=== PATIENT | female | born 1930 | race Caucasian/White ===

== ENCOUNTER 2017-03-26 12:20 | Inpatient (IN) | payer OTHER ==
[2017-03-26 17:14] LABS: ADD MAN DIFF? NO
[2017-03-26 17:22] LABS: BASOPHILS % 0.2 % (0.0-2.0); EOSINOPHILS % 0.4 % (0.0-7.0); HEMATOCRIT 39.7 % (37.0-47.0); HEMOGLOBIN 13.2 g/dl (12.0-16.0); LYMPHOCYTES # 2.6 10^3/ul (0.8-2.9); LYMPHOCYTES % 24.5 % (15.0-51.0); MEAN CORPUSCULAR HEMOGLOBIN 30.1 pg (29.0-33.0); MEAN CORPUSCULAR HGB CONC 33.2 g/dl (32.0-37.0); MEAN CORPUSCULAR VOLUME 90.6 fl (82.0-101.0); MEAN PLATELET VOLUME 8.5 fl (7.4-10.4); MONOCYTE # 0.9 10^3/ul (0.3-0.9); MONOCYTES % 8.5 % (0.0-11.0); NEUTROPHIL # 6.9 10^3/ul (1.6-7.5); NEUTROPHILS % 66.1 % (39.0-77.0); PLATELET COUNT 340 10^3/UL (140-415); RED BLOOD COUNT 4.38 10^6/ul (4.20-5.40); RED CELL DISTRIBUTION WIDTH 14.7 % (11.5-14.5)
[2017-03-26 17:22] LABS: WHITE BLOOD COUNT 10.5 10^3/ul (4.8-10.8)
[2017-03-26 17:42] LABS: INR 0.98; PARTIAL THROMBOPLASTIN TIME 28.5 Sec (25.0-35.0); PROTIME 13.1 Sec (11.9-14.9)
[2017-03-26 17:46] LABS: ANION GAP 13 (8-16); BLOOD UREA NITROGEN 15 mg/dl (7-20); CALCIUM 9.3 mg/dl (8.4-10.2); CARBON DIOXIDE 30 mmol/L (21-31); CHLORIDE 101 mmol/L (97-110); CREATININE 0.59 mg/dl (0.44-1.00); GLUCOSE 101 mg/dl (70-220); POTASSIUM 3.7 mmol/L (3.5-5.1); SODIUM 140 mmol/L (135-144)
[2017-03-26 18:08] LABS: TROPONIN-I < 0.012 ng/ml (0.00-0.12)
[2017-03-26] MEDS: METOPROLOL 50 MG TAB PO (18:29)
[2017-03-26] MEDS: AMLODIPINE 10 MG TAB PO (18:29)
[2017-03-26] MEDS: LISINOPRIL 10 MG TAB PO (18:29)
[2017-03-26] MEDS: IODIXANOL LOCM 100 ML BTL (20:00)
[2017-03-26] MEDS: SOD CHLORIDE 0.9% 100 ML (20:00)
[2017-03-26] MEDS: niCARdipine-NS 0.1MG/ML DRIP 200 ML IV (20:07)
[2017-03-26] MEDS: NACL 3% 500 ML IV (23:48)
[2017-03-27] LABS: CREATINE KINASE 29 IU/L (23-200)
[2017-03-27] MEDS ORDERED: ACETAMINOPHEN 650MG/20.3ML CUP PO
[2017-03-27] MEDS ORDERED: HYDROCODONE/APAP (5/325) TAB PO
[2017-03-27] MEDS ORDERED: ONDANSETRON 4 MG INJ IV
[2017-03-27 00:12] LABS: CK INDEX 4.7; CK-MB 1.36 ng/ml (0.0-2.4)
[2017-03-27 00:37] LABS: TROPONIN-I < 0.012 ng/ml (0.00-0.12)
[2017-03-27 00:42] LABS: ANION GAP 9 (8-16); BLOOD UREA NITROGEN 12 mg/dl (7-20); CALCIUM 8.9 mg/dl (8.4-10.2); CARBON DIOXIDE 30 mmol/L (21-31); CHLORIDE 101 mmol/L (97-110); CREATININE 0.52 mg/dl (0.44-1.00); GLUCOSE 110 mg/dl (70-220); POTASSIUM 3.4 mmol/L (3.5-5.1); SODIUM 137 mmol/L (135-144)
[2017-03-27] MEDS: NACL 3% 500 ML IV ×5 (01:08→20:35)
[2017-03-27] MEDS: niCARdipine 25 MG in SOD CHLORIDE 0.9% 240 ML IV ×3 (01:59→17:28)
[2017-03-27 05:25] LABS: ADD MAN DIFF? NO
[2017-03-27 05:33] LABS: BASOPHILS % 0.3 % (0.0-2.0); EOSINOPHILS # 0.1 10^3/ul (0.0-0.5); EOSINOPHILS % 0.7 % (0.0-7.0); LYMPHOCYTES # 2.6 10^3/ul (0.8-2.9); LYMPHOCYTES % 25.2 % (15.0-51.0); MEAN CORPUSCULAR HGB CONC 33.3 g/dl (32.0-37.0); MEAN PLATELET VOLUME 8.5 fl (7.4-10.4); MONOCYTE # 0.8 10^3/ul (0.3-0.9); MONOCYTES % 7.9 % (0.0-11.0); NEUTROPHIL # 6.8 10^3/ul (1.6-7.5); NEUTROPHILS % 65.6 % (39.0-77.0); PLATELET COUNT 309 10^3/UL (140-415); RED CELL DISTRIBUTION WIDTH 14.9 % (11.5-14.5)
[2017-03-27 05:33] LABS: WHITE BLOOD COUNT 10.4 10^3/ul (4.8-10.8)
[2017-03-27 06:03] LABS: CREATINE KINASE 24 IU/L (23-200)
[2017-03-27] MEDS: PANTOPRAZOLE 40 MG INJ IV (06:04)
[2017-03-27 06:06] LABS: ALANINE AMINOTRANSFERASE 31 IU/L (13-69); ALBUMIN 3.5 g/dl (3.3-4.9); ALBUMIN/GLOBULIN RATIO 1.09; ALKALINE PHOSPHATASE 102 IU/L (42-121); ANION GAP 10 (8-16); ASPARTATE AMINO TRANSFERASE 20 IU/L (15-46); BILIRUBIN,INDIRECT 0.3 mg/dl (0-1.1); BILIRUBIN,TOTAL 0.3 mg/dl (0.2-1.3); BLOOD UREA NITROGEN 12 mg/dl (7-20); CALCIUM 8.8 mg/dl (8.4-10.2); CARBON DIOXIDE 28 mmol/L (21-31); CHLORIDE 109 mmol/L (97-110); CREATININE 0.55 mg/dl (0.44-1.00); GLUCOSE 102 mg/dl (70-220); POTASSIUM 3.3 mmol/L (3.5-5.1); SODIUM 144 mmol/L (135-144); TOTAL PROTEIN 6.7 g/dl (6.1-8.1)
[2017-03-27 06:09] LABS: CK INDEX 4.1; CK-MB 0.98 ng/ml (0.0-2.4)
[2017-03-27 06:30] LABS: TROPONIN-I < 0.012 ng/ml (0.00-0.12)
[2017-03-27] MEDS: POTASSIUM CHLORIDE (SR) 20 MEQ TAB PO (06:46)
[2017-03-27 07:18] LABS: HEMOGLOBIN A1C 5.3 % (0-5.9)
[2017-03-27] MEDS: DOCUSATE SODIUM 100 MG CAP PO ×2 (09:40→20:33)
[2017-03-27] MEDS: MOMETASONE 0.24 GM INHALER INH (12:13)
[2017-03-27] MEDS: SALMETEROL/FLUTICASONE 250/50 INHA INH (12:13)
[2017-03-27 13:19] LABS: ANION GAP 11 (8-16); BLOOD UREA NITROGEN 11 mg/dl (7-20); CALCIUM 8.8 mg/dl (8.4-10.2); CARBON DIOXIDE 27 mmol/L (21-31); CHLORIDE 108 mmol/L (97-110); CREATININE 0.53 mg/dl (0.44-1.00); GLUCOSE 127 mg/dl (70-220); POTASSIUM 3.9 mmol/L (3.5-5.1); SODIUM 142 mmol/L (135-144)
[2017-03-27] MEDS: LISINOPRIL 10 MG TAB PO (15:32)
[2017-03-27] MEDS: SERTRALINE 100 MG TAB PO (15:32)
[2017-03-27] MEDS: PANTOPRAZOLE (EC) 40 MG TAB PO (15:32)
[2017-03-27] MEDS: METOPROLOL 50 MG TAB PO ×2 (15:32→20:34)
[2017-03-27] MEDS: THIAMINE 100 MG TAB PO (15:32)
[2017-03-27] MEDS: AMLODIPINE 10 MG TAB PO (15:33)
[2017-03-27] MEDS: LORATADINE 10 MG TAB PO (17:28)
[2017-03-27] MEDS: ATORVASTATIN 10 MG TAB PO (20:33)
[2017-03-28] MEDS: NACL 3% 500 ML IV ×2 (01:44→22:58)
[2017-03-28] MEDS: niCARdipine 25 MG in SOD CHLORIDE 0.9% 240 ML IV ×4 (02:00→22:37)
[2017-03-28 04:17] LABS: ADD MAN DIFF? NO
[2017-03-28] MEDS: SALMETEROL/FLUTICASONE 250/50 INHA INH ×3 (04:21→21:06)
[2017-03-28 04:23] LABS: BASOPHILS % 0.4 % (0.0-2.0); EOSINOPHILS # 0.1 10^3/ul (0.0-0.5); EOSINOPHILS % 0.7 % (0.0-7.0); HEMATOCRIT 34.4 % (37.0-47.0); HEMOGLOBIN 11.1 g/dl (12.0-16.0); LYMPHOCYTES # 1.9 10^3/ul (0.8-2.9); MEAN CORPUSCULAR HEMOGLOBIN 29.9 pg (29.0-33.0); MEAN CORPUSCULAR HGB CONC 32.3 g/dl (32.0-37.0); MEAN CORPUSCULAR VOLUME 92.7 fl (82.0-101.0); MEAN PLATELET VOLUME 8.7 fl (7.4-10.4); MONOCYTE # 0.6 10^3/ul (0.3-0.9); MONOCYTES % 7.4 % (0.0-11.0); NEUTROPHIL # 5.6 10^3/ul (1.6-7.5); NEUTROPHILS % 68.1 % (39.0-77.0); PLATELET COUNT 306 10^3/UL (140-415); RED BLOOD COUNT 3.71 10^6/ul (4.20-5.40); RED CELL DISTRIBUTION WIDTH 15.3 % (11.5-14.5)
[2017-03-28 04:23] LABS: WHITE BLOOD COUNT 8.2 10^3/ul (4.8-10.8)
[2017-03-28 04:57] LABS: ALANINE AMINOTRANSFERASE 25 IU/L (13-69); ALBUMIN 3.5 g/dl (3.3-4.9); ALBUMIN/GLOBULIN RATIO 1.16; ALKALINE PHOSPHATASE 89 IU/L (42-121); ANION GAP 14 (8-16); ASPARTATE AMINO TRANSFERASE 19 IU/L (15-46); BILIRUBIN,INDIRECT 0.2 mg/dl (0-1.1); BILIRUBIN,TOTAL 0.2 mg/dl (0.2-1.3); BLOOD UREA NITROGEN 11 mg/dl (7-20); CALCIUM 8.4 mg/dl (8.4-10.2); CARBON DIOXIDE 25 mmol/L (21-31); CHLORIDE 119 mmol/L (97-110); CREATININE 0.49 mg/dl (0.44-1.00); GLUCOSE 117 mg/dl (70-220); POTASSIUM 3.5 mmol/L (3.5-5.1); SODIUM 154 mmol/L (135-144); TOTAL PROTEIN 6.5 g/dl (6.1-8.1)
[2017-03-28] MEDS: PANTOPRAZOLE (EC) 40 MG TAB PO (05:32)
[2017-03-28] MEDS: THIAMINE 100 MG TAB PO (08:57)
[2017-03-28] MEDS: DOCUSATE SODIUM 100 MG CAP PO ×2 (08:57→21:07)
[2017-03-28] MEDS: AMLODIPINE 10 MG TAB PO (08:57)
[2017-03-28] MEDS: LORATADINE 10 MG TAB PO (08:57)
[2017-03-28] MEDS: SERTRALINE 100 MG TAB PO (08:57)
[2017-03-28] MEDS: METOPROLOL 50 MG TAB PO ×2 (08:58→21:07)
[2017-03-28] MEDS ORDERED: LISINOPRIL 10 MG TAB PO (09:00)
[2017-03-28] MEDS: LISINOPRIL 10 MG TAB PO (10:10)
[2017-03-28] MEDS: D5W-0.45 NACL + KCL 20 MEQ 1,000 ML IV (10:10)
[2017-03-28] MEDS: MOMETASONE 0.24 GM INHALER INH (13:56)
[2017-03-28 15:53] LABS: ANION GAP 12 (8-16); BLOOD UREA NITROGEN 13 mg/dl (7-20); CALCIUM 8.3 mg/dl (8.4-10.2); CARBON DIOXIDE 25 mmol/L (21-31); CHLORIDE 112 mmol/L (97-110); CREATININE 0.57 mg/dl (0.44-1.00); GLUCOSE 94 mg/dl (70-220); POTASSIUM 3.8 mmol/L (3.5-5.1); SODIUM 145 mmol/L (135-144)
[2017-03-28] MEDS: D5-NS + KCL 20 MEQ 1,000 ML IV (17:21)
[2017-03-28] MEDS: ATORVASTATIN 10 MG TAB PO (21:06)
[2017-03-28 22:18] LABS: ANION GAP 10 (8-16); BLOOD UREA NITROGEN 16 mg/dl (7-20); CALCIUM 8.5 mg/dl (8.4-10.2); CARBON DIOXIDE 25 mmol/L (21-31); CHLORIDE 108 mmol/L (97-110); CREATININE 0.57 mg/dl (0.44-1.00); GLUCOSE 101 mg/dl (70-220); POTASSIUM 3.5 mmol/L (3.5-5.1); SODIUM 139 mmol/L (135-144)
[2017-03-29 00:55] LABS: ANION GAP 11 (8-16); BLOOD UREA NITROGEN 15 mg/dl (7-20); CALCIUM 8.3 mg/dl (8.4-10.2); CARBON DIOXIDE 23 mmol/L (21-31); CHLORIDE 110 mmol/L (97-110); CREATININE 0.51 mg/dl (0.44-1.00); GLUCOSE 88 mg/dl (70-220); POTASSIUM 3.3 mmol/L (3.5-5.1); SODIUM 141 mmol/L (135-144)
[2017-03-29] MEDS: D5-NS + KCL 20 MEQ 1,000 ML IV (05:44)
[2017-03-29 06:18] LABS: ADD MAN DIFF? NO
[2017-03-29 06:31] LABS: BASOPHILS % 0.4 % (0.0-2.0); EOSINOPHILS # 0.2 10^3/ul (0.0-0.5); EOSINOPHILS % 1.9 % (0.0-7.0); HEMATOCRIT 33.1 % (37.0-47.0); HEMOGLOBIN 10.5 g/dl (12.0-16.0); LYMPHOCYTES # 1.9 10^3/ul (0.8-2.9); LYMPHOCYTES % 19.7 % (15.0-51.0); MEAN CORPUSCULAR HEMOGLOBIN 29.3 pg (29.0-33.0); MEAN CORPUSCULAR HGB CONC 31.7 g/dl (32.0-37.0); MEAN CORPUSCULAR VOLUME 92.5 fl (82.0-101.0); MEAN PLATELET VOLUME 8.6 fl (7.4-10.4); MONOCYTE # 0.7 10^3/ul (0.3-0.9); MONOCYTES % 7.8 % (0.0-11.0); NEUTROPHIL # 6.6 10^3/ul (1.6-7.5); NEUTROPHILS % 69.8 % (39.0-77.0); PLATELET COUNT 271 10^3/UL (140-415); RED BLOOD COUNT 3.58 10^6/ul (4.20-5.40)
[2017-03-29 06:31] LABS: WHITE BLOOD COUNT 9.5 10^3/ul (4.8-10.8)
[2017-03-29] MEDS: PANTOPRAZOLE (EC) 40 MG TAB PO (06:47)
[2017-03-29] MEDS: NACL 3% 500 ML IV ×4 (06:57→21:08)
[2017-03-29 07:03] LABS: ALANINE AMINOTRANSFERASE 24 IU/L (13-69); ALBUMIN 3.2 g/dl (3.3-4.9); ALBUMIN/GLOBULIN RATIO 1.06; ALKALINE PHOSPHATASE 82 IU/L (42-121); ANION GAP 11 (8-16); ASPARTATE AMINO TRANSFERASE 20 IU/L (15-46); BILIRUBIN,INDIRECT 0.4 mg/dl (0-1.1); BILIRUBIN,TOTAL 0.4 mg/dl (0.2-1.3); BLOOD UREA NITROGEN 13 mg/dl (7-20); CALCIUM 8.4 mg/dl (8.4-10.2); CARBON DIOXIDE 25 mmol/L (21-31); CHLORIDE 113 mmol/L (97-110); CREATININE 0.48 mg/dl (0.44-1.00); GLUCOSE 87 mg/dl (70-220); POTASSIUM 3.3 mmol/L (3.5-5.1); SODIUM 146 mmol/L (135-144); TOTAL PROTEIN 6.2 g/dl (6.1-8.1)
[2017-03-29] MEDS: SALMETEROL/FLUTICASONE 250/50 INHA INH ×2 (08:58→21:05)
[2017-03-29] MEDS: MOMETASONE 0.24 GM INHALER INH (08:58)
[2017-03-29] MEDS: DOCUSATE SODIUM 100 MG CAP PO ×2 (08:59→21:06)
[2017-03-29] MEDS: SERTRALINE 100 MG TAB PO (08:59)
[2017-03-29] MEDS: LISINOPRIL 10 MG TAB PO (08:59)
[2017-03-29] MEDS: AMLODIPINE 10 MG TAB PO (09:00)
[2017-03-29] MEDS: LORATADINE 10 MG TAB PO (09:00)
[2017-03-29] MEDS ORDERED: LISINOPRIL 10 MG TAB PO (09:00)
[2017-03-29] MEDS: THIAMINE 100 MG TAB PO (09:00)
[2017-03-29] MEDS: METOPROLOL 50 MG TAB PO ×2 (09:01→21:06)
[2017-03-29] MEDS: niCARdipine 25 MG in SOD CHLORIDE 0.9% 240 ML IV ×3 (09:02→21:08)
[2017-03-29 12:46] LABS: ANION GAP 11 (8-16); BLOOD UREA NITROGEN 11 mg/dl (7-20); CALCIUM 8.5 mg/dl (8.4-10.2); CARBON DIOXIDE 25 mmol/L (21-31); CHLORIDE 114 mmol/L (97-110); CREATININE 0.44 mg/dl (0.44-1.00); GLUCOSE 90 mg/dl (70-220); POTASSIUM 3.3 mmol/L (3.5-5.1); SODIUM 147 mmol/L (135-144)
[2017-03-29 19:18] LABS: ANION GAP 12 (8-16); BLOOD UREA NITROGEN 12 mg/dl (7-20); CALCIUM 8.5 mg/dl (8.4-10.2); CARBON DIOXIDE 24 mmol/L (21-31); CHLORIDE 114 mmol/L (97-110); CREATININE 0.52 mg/dl (0.44-1.00); GLUCOSE 120 mg/dl (70-220); POTASSIUM 3.4 mmol/L (3.5-5.1); SODIUM 147 mmol/L (135-144)
[2017-03-29] MEDS: ATORVASTATIN 10 MG TAB PO (21:06)
[2017-03-30] MEDS: niCARdipine 25 MG in SOD CHLORIDE 0.9% 240 ML IV ×3 (00:42→11:15)
[2017-03-30 01:41] LABS: ANION GAP 11 (8-16); BLOOD UREA NITROGEN 12 mg/dl (7-20); CALCIUM 8.4 mg/dl (8.4-10.2); CARBON DIOXIDE 25 mmol/L (21-31); CHLORIDE 117 mmol/L (97-110); CREATININE 0.49 mg/dl (0.44-1.00); GLUCOSE 105 mg/dl (70-220); POTASSIUM 3.1 mmol/L (3.5-5.1); SODIUM 150 mmol/L (135-144)
[2017-03-30] MEDS: NACL 3% 500 ML IV (05:46)
[2017-03-30] MEDS: PANTOPRAZOLE (EC) 40 MG TAB PO (05:46)
[2017-03-30 06:13] LABS: ADD MAN DIFF? NO
[2017-03-30 06:21] LABS: BASOPHILS % 0.3 % (0.0-2.0); EOSINOPHILS # 0.1 10^3/ul (0.0-0.5); EOSINOPHILS % 0.6 % (0.0-7.0); HEMATOCRIT 32.6 % (37.0-47.0); HEMOGLOBIN 10.6 g/dl (12.0-16.0); LYMPHOCYTES # 1.5 10^3/ul (0.8-2.9); MEAN CORPUSCULAR HEMOGLOBIN 30.2 pg (29.0-33.0); MEAN CORPUSCULAR HGB CONC 32.5 g/dl (32.0-37.0); MEAN CORPUSCULAR VOLUME 92.9 fl (82.0-101.0); MONOCYTE # 0.7 10^3/ul (0.3-0.9); MONOCYTES % 6.5 % (0.0-11.0); NEUTROPHIL # 8.9 10^3/ul (1.6-7.5); NEUTROPHILS % 79.1 % (39.0-77.0); PLATELET COUNT 270 10^3/UL (140-415); RED BLOOD COUNT 3.51 10^6/ul (4.20-5.40); RED CELL DISTRIBUTION WIDTH 15.7 % (11.5-14.5)
[2017-03-30 06:21] LABS: WHITE BLOOD COUNT 11.3 10^3/ul (4.8-10.8)
[2017-03-30 06:50] LABS: ALANINE AMINOTRANSFERASE 33 IU/L (13-69); ALBUMIN 3.4 g/dl (3.3-4.9); ALBUMIN/GLOBULIN RATIO 1.13; ALKALINE PHOSPHATASE 90 IU/L (42-121); ANION GAP 12 (8-16); ASPARTATE AMINO TRANSFERASE 26 IU/L (15-46); BILIRUBIN,INDIRECT 0.3 mg/dl (0-1.1); BILIRUBIN,TOTAL 0.3 mg/dl (0.2-1.3); BLOOD UREA NITROGEN 12 mg/dl (7-20); CALCIUM 8.5 mg/dl (8.4-10.2); CARBON DIOXIDE 24 mmol/L (21-31); CHLORIDE 117 mmol/L (97-110); CREATININE 0.49 mg/dl (0.44-1.00); GLUCOSE 104 mg/dl (70-220); POTASSIUM 3.1 mmol/L (3.5-5.1); SODIUM 150 mmol/L (135-144); TOTAL PROTEIN 6.4 g/dl (6.1-8.1)
[2017-03-30] MEDS: DOCUSATE SODIUM 100 MG CAP PO ×2 (09:10→20:25)
[2017-03-30] MEDS: METOPROLOL 50 MG TAB PO ×2 (09:10→20:26)
[2017-03-30] MEDS: LORATADINE 10 MG TAB PO (09:11)
[2017-03-30] MEDS: LISINOPRIL 10 MG TAB PO (09:11)
[2017-03-30] MEDS: SERTRALINE 100 MG TAB PO (09:11)
[2017-03-30] MEDS: AMLODIPINE 10 MG TAB PO (09:11)
[2017-03-30] MEDS: THIAMINE 100 MG TAB PO (09:11)
[2017-03-30] MEDS: SALMETEROL/FLUTICASONE 250/50 INHA INH ×2 (09:12→20:24)
[2017-03-30] MEDS: MOMETASONE 0.24 GM INHALER INH (09:12)
[2017-03-30 13:28] LABS: ANION GAP 13 (8-16); BLOOD UREA NITROGEN 14 mg/dl (7-20); CALCIUM 8.6 mg/dl (8.4-10.2); CARBON DIOXIDE 23 mmol/L (21-31); CHLORIDE 113 mmol/L (97-110); CREATININE 0.51 mg/dl (0.44-1.00); GLUCOSE 113 mg/dl (70-220); POTASSIUM 3.4 mmol/L (3.5-5.1); SODIUM 146 mmol/L (135-144)
[2017-03-30] MEDS ORDERED: POTASSIUM CHLORIDE 50 ML IVPB (14:00)
[2017-03-30] MEDS: POTASSIUM CHLORIDE 50 ML IVPB ×2 (15:35→16:43)
[2017-03-30] MEDS ORDERED: ALTEPLASE (CATHFLO) 2 MG INJ CATHETER (16:00)
[2017-03-30 18:05] LABS: BLOOD UREA NITROGEN 16 mg/dl (7-20); CALCIUM 8.7 mg/dl (8.4-10.2); CARBON DIOXIDE 24 mmol/L (21-31); CHLORIDE 111 mmol/L (97-110); GLUCOSE 109 mg/dl (70-220); SODIUM 142 mmol/L (135-144)
[2017-03-30 18:09] LABS: ANION GAP 11 (8-16); POTASSIUM 3.6 mmol/L (3.5-5.1)
[2017-03-30] MEDS: ATORVASTATIN 10 MG TAB PO (20:24)
[2017-03-31] MEDS: hydrALAzine 20 MG INJ IV (00:58)
[2017-03-31] MEDS: PANTOPRAZOLE (EC) 40 MG TAB PO (06:13)
[2017-03-31 06:19] LABS: ADD MAN DIFF? NO
[2017-03-31 06:26] LABS: WHITE BLOOD COUNT 17.6 10^3/ul (4.8-10.8)
[2017-03-31 06:26] LABS: BASOPHILS % 0.2 % (0.0-2.0); EOSINOPHILS # 0.1 10^3/ul (0.0-0.5); EOSINOPHILS % 0.5 % (0.0-7.0); HEMATOCRIT 34.2 % (37.0-47.0); LYMPHOCYTES # 3.1 10^3/ul (0.8-2.9); LYMPHOCYTES % 17.5 % (15.0-51.0); MEAN CORPUSCULAR HEMOGLOBIN 30.1 pg (29.0-33.0); MEAN CORPUSCULAR HGB CONC 32.2 g/dl (32.0-37.0); MEAN CORPUSCULAR VOLUME 93.7 fl (82.0-101.0); MEAN PLATELET VOLUME 9.2 fl (7.4-10.4); MONOCYTE # 1.3 10^3/ul (0.3-0.9); MONOCYTES % 7.4 % (0.0-11.0); NEUTROPHILS % 73.7 % (39.0-77.0); PLATELET COUNT 325 10^3/UL (140-415); RED BLOOD COUNT 3.65 10^6/ul (4.20-5.40); RED CELL DISTRIBUTION WIDTH 15.6 % (11.5-14.5)
[2017-03-31 07:01] LABS: ALANINE AMINOTRANSFERASE 46 IU/L (13-69); ALBUMIN 3.7 g/dl (3.3-4.9); ALBUMIN/GLOBULIN RATIO 1.15; ALKALINE PHOSPHATASE 117 IU/L (42-121); ANION GAP 14 (8-16); ASPARTATE AMINO TRANSFERASE 41 IU/L (15-46); BILIRUBIN,INDIRECT 0.5 mg/dl (0-1.1); BILIRUBIN,TOTAL 0.5 mg/dl (0.2-1.3); BLOOD UREA NITROGEN 17 mg/dl (7-20); CALCIUM 8.9 mg/dl (8.4-10.2); CARBON DIOXIDE 25 mmol/L (21-31); CHLORIDE 109 mmol/L (97-110); CREATININE 0.51 mg/dl (0.44-1.00); GLUCOSE 113 mg/dl (70-220); POTASSIUM 3.3 mmol/L (3.5-5.1); SODIUM 145 mmol/L (135-144); TOTAL PROTEIN 6.9 g/dl (6.1-8.1)
[2017-03-31 07:04] LABS: PHOSPHORUS 4.2 mg/dl (2.5-4.9)
[2017-03-31 07:04] LABS: MAGNESIUM 1.9 mg/dl (1.7-2.5)
[2017-03-31] MEDS: THIAMINE 100 MG TAB PO (09:00)
[2017-03-31] MEDS: SALMETEROL/FLUTICASONE 250/50 INHA INH ×2 (09:31→22:03)
[2017-03-31] MEDS: MOMETASONE 0.24 GM INHALER INH (09:31)
[2017-03-31] MEDS: AMLODIPINE 10 MG TAB PO (09:32)
[2017-03-31] MEDS: DOCUSATE SODIUM 100 MG CAP PO ×2 (09:32→22:01)
[2017-03-31] MEDS: LISINOPRIL 20 MG TAB PO (09:32)
[2017-03-31] MEDS: LORATADINE 10 MG TAB PO (09:32)
[2017-03-31] MEDS: SERTRALINE 100 MG TAB PO (09:32)
[2017-03-31] MEDS: METOPROLOL 50 MG TAB PO ×2 (09:32→22:02)
[2017-03-31] MEDS: POTASSIUM CHLORIDE (SR) 20 MEQ TAB PO (14:24)
[2017-03-31] MEDS: NIFEdipine 10 MG CAP PO (18:09)
[2017-03-31] MEDS: FUROSEMIDE 20 MG INJ IV (19:45)
[2017-03-31] MEDS: ATORVASTATIN 10 MG TAB PO (22:03)
[2017-04-01] MEDS: NIFEdipine 10 MG CAP PO ×5 (00:52→20:18)
[2017-04-01] MEDS: PANTOPRAZOLE (EC) 40 MG TAB PO (05:24)
[2017-04-01] MEDS: THIAMINE 100 MG TAB PO (09:00)
[2017-04-01] MEDS: LISINOPRIL 20 MG TAB PO (09:31)
[2017-04-01] MEDS: METOPROLOL 50 MG TAB PO ×2 (09:31→20:19)
[2017-04-01] MEDS: DOCUSATE SODIUM 100 MG CAP PO ×2 (09:31→20:19)
[2017-04-01] MEDS: SERTRALINE 100 MG TAB PO (09:32)
[2017-04-01] MEDS: MOMETASONE 0.24 GM INHALER INH (09:32)
[2017-04-01] MEDS: SALMETEROL/FLUTICASONE 250/50 INHA INH ×2 (09:32→20:21)
[2017-04-01] MEDS: LORATADINE 10 MG TAB PO (09:32)
[2017-04-01] MEDS: FUROSEMIDE 20 MG TAB PO (18:10)
[2017-04-01] MEDS: ATORVASTATIN 10 MG TAB PO (20:19)
[2017-04-02] MEDS: NIFEdipine 10 MG CAP PO ×8 (00:29→18:00)
[2017-04-02] MEDS ORDERED: POTASSIUM CHLORIDE IVPB (05:00)
[2017-04-02] MEDS ORDERED: SOD CHLORIDE 0.45% IVPB (05:00)
[2017-04-02] MEDS: ALBUTEROL/IPRATROPIUM (NEB) 3 ML AMP HHN (05:03)
[2017-04-02 05:17] LABS: AADO2 Arterial 127.4 mmHg (7.0-24.0); Allen Test ACCEPTAB; Arterial Base Excess -2.1 mmol/L (-3.0-3); Arterial Blood Gas Oxygen Sat 98.8 mmHG (95.0-100.0); Arterial COHb 0.3 % (0.0-3.0); Arterial Fraction of Oxyhgb 98.5 % (93.0-99.0); Arterial HCO3 22.2 mmol/L (22.0-26.0); Arterial MetHb 0 % (0.0-1.5); Arterial Total Hemglobin 9.6 g/dl (12.0-18.0); MODE MASK - SIMPLE; Site Right Radial
[2017-04-02] MEDS: SOD CHLORIDE 0.45% IVPB (06:04)
[2017-04-02] MEDS: POTASSIUM CHLORIDE IVPB (06:04)
[2017-04-02] MEDS: PANTOPRAZOLE (EC) 40 MG TAB PO (06:06)
[2017-04-02] MEDS: FUROSEMIDE 40 MG INJ IV (06:32)
[2017-04-02 07:45] LABS: ADD MAN DIFF? NO
[2017-04-02 07:54] LABS: WHITE BLOOD COUNT 11.9 10^3/ul (4.8-10.8)
[2017-04-02 07:54] LABS: BASOPHILS % 0.3 % (0.0-2.0); EOSINOPHILS # 0.1 10^3/ul (0.0-0.5); EOSINOPHILS % 0.9 % (0.0-7.0); HEMATOCRIT 31.2 % (37.0-47.0); HEMOGLOBIN 10.3 g/dl (12.0-16.0); LYMPHOCYTES # 1.4 10^3/ul (0.8-2.9); LYMPHOCYTES % 11.6 % (15.0-51.0); MEAN CORPUSCULAR HEMOGLOBIN 30.3 pg (29.0-33.0); MEAN CORPUSCULAR VOLUME 91.8 fl (82.0-101.0); MEAN PLATELET VOLUME 9.4 fl (7.4-10.4); MONOCYTES % 8.6 % (0.0-11.0); NEUTROPHIL # 9.3 10^3/ul (1.6-7.5); NEUTROPHILS % 78.1 % (39.0-77.0); PLATELET COUNT 283 10^3/UL (140-415); RED CELL DISTRIBUTION WIDTH 15.1 % (11.5-14.5)
[2017-04-02 08:12] LABS: ANION GAP 12 (8-16); BLOOD UREA NITROGEN 22 mg/dl (7-20); CALCIUM 8.3 mg/dl (8.4-10.2); CARBON DIOXIDE 28 mmol/L (21-31); CHLORIDE 104 mmol/L (97-110); CREATININE 0.51 mg/dl (0.44-1.00); GLUCOSE 96 mg/dl (70-220); MAGNESIUM 1.8 mg/dl (1.7-2.5); PHOSPHORUS 3.3 mg/dl (2.5-4.9); POTASSIUM 3.1 mmol/L (3.5-5.1); SODIUM 141 mmol/L (135-144)
[2017-04-02] MEDS: DOCUSATE SODIUM 100 MG CAP PO ×2 (09:28→20:32)
[2017-04-02] MEDS: LORATADINE 10 MG TAB PO (09:28)
[2017-04-02] MEDS: THIAMINE 100 MG TAB PO (09:29)
[2017-04-02] MEDS: SERTRALINE 100 MG TAB PO (09:29)
[2017-04-02] MEDS: MOMETASONE 0.24 GM INHALER INH (09:30)
[2017-04-02] MEDS: LISINOPRIL 20 MG TAB PO (09:30)
[2017-04-02] MEDS: SALMETEROL/FLUTICASONE 250/50 INHA INH ×2 (09:30→20:33)
[2017-04-02] MEDS: METOPROLOL 50 MG TAB PO ×2 (09:32→20:32)
[2017-04-02 11:33] LABS: POTASSIUM 3.5 mmol/L (3.5-5.1)
[2017-04-02 11:43] LABS: B-TYPE NATRIURETIC PEPTIDE 790 PG/ML (0-450)
[2017-04-02] MEDS: ATORVASTATIN 10 MG TAB PO (20:31)
[2017-04-03] MEDS: NIFEdipine 10 MG CAP PO ×6 (00:30→12:56)
[2017-04-03] MEDS: PANTOPRAZOLE (EC) 40 MG TAB PO (05:26)
[2017-04-03 09:08] LABS: ADD MAN DIFF? NO
[2017-04-03 09:11] LABS: BASOPHILS % 0.3 % (0.0-2.0); EOSINOPHILS # 0.2 10^3/ul (0.0-0.5); EOSINOPHILS % 2.1 % (0.0-7.0); HEMATOCRIT 31.3 % (37.0-47.0); HEMOGLOBIN 9.9 g/dl (12.0-16.0); LYMPHOCYTES # 1.4 10^3/ul (0.8-2.9); LYMPHOCYTES % 14.6 % (15.0-51.0); MEAN CORPUSCULAR HEMOGLOBIN 29.4 pg (29.0-33.0); MEAN CORPUSCULAR HGB CONC 31.6 g/dl (32.0-37.0); MEAN CORPUSCULAR VOLUME 92.9 fl (82.0-101.0); MONOCYTES % 10.3 % (0.0-11.0); NEUTROPHILS % 71.9 % (39.0-77.0); PLATELET COUNT 303 10^3/UL (140-415); RED BLOOD COUNT 3.37 10^6/ul (4.20-5.40); RED CELL DISTRIBUTION WIDTH 14.8 % (11.5-14.5)
[2017-04-03 09:11] LABS: WHITE BLOOD COUNT 9.7 10^3/ul (4.8-10.8)
[2017-04-03 09:29] LABS: ANION GAP 9 (8-16); BLOOD UREA NITROGEN 21 mg/dl (7-20); CALCIUM 8.7 mg/dl (8.4-10.2); CARBON DIOXIDE 33 mmol/L (21-31); CHLORIDE 101 mmol/L (97-110); CREATININE 0.49 mg/dl (0.44-1.00); GLUCOSE 101 mg/dl (70-220); POTASSIUM 3.3 mmol/L (3.5-5.1); SODIUM 140 mmol/L (135-144)
[2017-04-03] MEDS: FUROSEMIDE 20 MG TAB PO (09:50)
[2017-04-03] MEDS: LORATADINE 10 MG TAB PO (09:50)
[2017-04-03] MEDS: DOCUSATE SODIUM 100 MG CAP PO (09:50)
[2017-04-03] MEDS: SERTRALINE 100 MG TAB PO (09:50)
[2017-04-03] MEDS: LISINOPRIL 20 MG TAB PO (09:51)
[2017-04-03] MEDS: METOPROLOL 50 MG TAB PO (09:51)
[2017-04-03] MEDS: SALMETEROL/FLUTICASONE 250/50 INHA INH (09:52)
[2017-04-03] MEDS: MOMETASONE 0.24 GM INHALER INH (09:52)
[2017-04-03] MEDS: THIAMINE 100 MG TAB PO (12:54)
[2017-04-03] MEDS: POTASSIUM CHLORIDE (SR) 20 MEQ TAB PO (12:56)
== END 2017-04-03 17:11 | disposition home health service (06) | DRG 65 ==
LOC: ICU 19:49 → E/R 12:20 → MS4 03-30 22:18
PROC: 05HM33Z Insertion of Infusion Device into Right Internal Jugular Vein, Percutaneous Approach (ICD-10-PCS; principal; 2017-03-26)
DX: I61.4 Nontraumatic intracerebral hemorrhage in cerebellum (principal); I16.1 Hypertensive emergency; I65.21 Occlusion and stenosis of right carotid artery; I10 Essential (primary) hypertension; R47.1 Dysarthria and anarthria; E78.5 Hyperlipidemia, unspecified; J45.909 Unspecified asthma, uncomplicated; Z87.891 Personal history of nicotine dependence
CPT/HCPCS: 36600; 70450; 70496; 70498; 71045; 76937; 80048; 80053; 82550; 82553; 82803; 83036; 83735; 83880; 84100; 84132; 84443; 84484; 85025; 85610; 85730; 86850; 86900; 86901; 87081; 92507; 92523; 92526; 92610; 93005; 93880; 94664; 96374; 97003; 97110; 97116; 97163; 97167; 97530; 97535; 99291-25; J1940